=== PATIENT | male | born 1950 | race American Indian/Alaskan Native ===

== ENCOUNTER 2017-09-07 03:45 | Emergency (ER) | payer MEDICARE ==
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
[2017-09-07] MEDS ORDERED: TRIPLE ANTIBIOTIC TP ONE ×2 (08:03)
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
[2017-09-07 08:47] VITALS: BP 142/56
--- NOTE | 2017-09-12 14:12 | Cat Scan Report ---
FINAL REPORT EXAM: CT HEAD WO CONTRAST HISTORY: fall laceration TECHNIQUE: Routine axial imaging was obtained of the brain without IV contrast. FINDINGS: There is mild age related volume loss. There is no evidence of acute stroke or hemorrhage. The ventricular system is normal in size and is symmetric. The visualized sinuses are clear. The mastoid air cells are well pneumatized. There is right pre frontal scalp laceration. There is no evidence of skull fracture. IMPRESSION: Right pre frontal scalp laceration. No evidence of skull fracture. Mild age related volume loss. No acute stroke or hemorrhage.
== END 2017-09-07 08:45 | disposition home or self-care (01) ==
LOC: ED 03:45
DX: S01.81XA Laceration without foreign body of other part of head, initial encounter (principal); E16.2 Hypoglycemia, unspecified; F17.200 Nicotine dependence, unspecified, uncomplicated; W10.8XXA Fall (on) (from) other stairs and steps, initial encounter; Y93.89 Activity, other specified; Y92.89 Other specified places as the place of occurrence of the external cause; Y99.8 Other external cause status
CPT/HCPCS: 70450; 99283; A6250